=== PATIENT | female | born 1980 ===

== ENCOUNTER → 2018-07-06 | Outpatient (CLI) | payer OTHER ==
[~2018-07-06] MED LIST: ZOLPIDEM 5 MG TABLET. PO ONE
--- NOTE | 2018-07-07 14:07 | SLEEP ---
DATE OF STUDY: 07/06/2018 ATTENDING PHYSICIAN: Dr. Diony Garces. The patient is 37 years old who weighs 204 pounds with a BMI of 34. The patient's Maywood score was 13. The patient underwent a diagnostic sleep study at [facility]. The patient has been on hydrocodone and cyclobenzaprine, which she was off of three days prior to the sleep test. During the night study, the patient spent 433 minutes in bed and slept for 409 minutes with a normal sleep efficiency of 94%. Sleep latency was 39 minutes with a REM latency of 112 minutes. Overall, sleep architecture showed normal stage I and stage 2 sleep, increased N3 sleep and normal REM sleep. During the night study, the patient had no obstructive apneas or central apneas. There was 1 mixed apnea and 4 hypopneas. The patient's apnea hypopnea index was 1 per hour with a supine index of 1 per hour and REM index of 1 per hour. EKG monitoring revealed an average heart rate of 70 beats per minute. No sustained arrhythmias observed. PLMs were seen at index of 5 per hour and 2 per hour caused EEG arousals. Nocturnal oximetry study revealed an average oxygen saturation of 98% with lowest of 91%. Due to low AHI, the patient did not meet the split night criteria for CPAP initiation. IMPRESSION: 1. No clinically significant sleep disordered breathing. The patient's apnea hypopnea index for the entire night was 1 per hour. 2. No clinically significant nocturnal hypoxia. 3. No clinically significant periodic limb movements. RECOMMENDATIONS: 1. The patient does not meet the criteria for CPAP initiation. The patient's subjective hypersomnia may be related to the effect of hydrocodone and cyclobenzaprine. She did stop these medications three days prior to the test. 2. If the patient's clinical symptoms resolve upon discontinuation of these sedating medications, then no further workup is required; however, if she continues to have hypersomnia, then she would need further evaluation such as multiple sleep latency test to rule out idiopathic hypersomnia or narcolepsy. 3. Weight loss is advised. 4. Cautioned regarding driving until hypersomnia is resolved with above recommendations. SHAINA MUELLER MD DR: HANNA/hannah JOB#: [id number] / [id number]
== END | disposition home or self-care (01) ==
LOC: SLPLAB 19:15
PROVIDERS: ATTEND Internal Medicine Critical Care Medicine
DX: G47.33 Obstructive sleep apnea (adult) (pediatric) (principal)
CPT/HCPCS: 95810